=== PATIENT | female | born 1955 | race Caucasian/White ===

== ENCOUNTER 2019-09-03 06:00 | Emergency (ER) | payer MEDICARE, OTHER ==
[~2019-09-03] VITALS: Ht 160 cm; Wt 57.7 kg
[2019-09-03] MEDS ORDERED: HYDROcodone/APAP 5/325 TABLET PO ONE (06:30)
[2019-09-03] MEDS ORDERED: HYDROcodone/APAP 5/325 TABLET ONE (06:33)
[2019-09-03] MEDS ORDERED: LEVE500T22 PO (06:36)
--- NOTE | 2019-09-03 06:40 | NUR ---
TASK RN: PT CAME IN TODAY DUE TO UNMANAGABLE PAIN ON LEFT SIDE AFTER A FALL DURING A SEIZURE ABOUT A WEEK AGO. PT DIAGNOSED WITH FRACTURED VERTEBRAE. PT STATES SHE IS UNABLE TO GET COMFORTABLE, SLEEP OR MOVE WELL DUE TO PAIN. PT STATES SHE HAD BEEN TAKING OXYCODONE THAT HAD BEEN PRESCRIBED BUT RAN OUT. TOOK 3 ALIEVE OVER THE COURSE OF LAST NIGHT WITHOUT RELIEF. AT BS. PT PLACED ON SPO2/BP MONITOR. VSS.
--- NOTE | 2019-09-03 06:52 | NUR ---
REPORT GIVEN TO PRANAY COOPER.
[2019-09-03 07:33] VITALS: BP 112/66
== END 2019-09-03 07:35 | disposition home or self-care (01) ==
LOC: ED 06:29
DX: S22.069A Unspecified fracture of T7-T8 vertebra, initial encounter for closed fracture (principal); Z76.0 Encounter for issue of repeat prescription; X58.XXXA Exposure to other specified factors, initial encounter; Y93.89 Activity, other specified; Y92.89 Other specified places as the place of occurrence of the external cause; Y99.8 Other external cause status
CPT/HCPCS: 99281; 99283